=== PATIENT | male | born 1955 | race Caucasian/White ===

== ENCOUNTER 2017-10-01 09:49 | Inpatient (IN) | payer OTHER ==
[2017-10-01] MEDS ORDERED: Sodium Chloride 0.9% 10 ML Syringe FLUSH PRN ×3 (09:57→12:40)
[2017-10-01] MEDS ORDERED: Iopamidol 612 MG/ML 150 ML Bottle IVPUSH ONE (10:00)
[2017-10-01] MEDS ORDERED: Lactated Ringers 1,000 ML IV SCH (10:00)
--- NOTE | 2017-10-01 10:34 | CT ---
CT cervical spine Technique: Multiple axial sections were obtained from above C1 inferiorly to the mid T2 level. Reconstructed sagittal and coronal images were reviewed. Comparison: No prior cervical spine imaging. Findings: Small sclerotic areas are identified within C7 and T2 which are felt to represent incidental bone islands. Additional sclerotic area is noted within the right second rib also felt to represent bone island. Mild degenerative change is scattered within the apophyseal joints. Minimal disc space narrowing is noted at C7-T1. Other disc spaces are maintained. Minimal anterior osteophytes are noted within the lower cervical spine. Vertebral body heights are maintained. Vertebral bodies and posterior arches are intact with no fracture being seen. No bony central or bony neural foraminal stenosis is seen. No subluxation is seen on the reconstructed sagittal images. Impression: 1. Mild degenerative change. Other incidental findings as noted above. 2. No acute fracture or abnormal subluxation is seen on CT study of the cervical spine. Diagnostic code #2
--- NOTE | 2017-10-01 10:40 | CT ---
CT chest Technique: Multiple axial sections were obtained from above the dome of the diaphragm inferiorly through the lung bases. Intravenous contrast was utilized. Comparison: No previous chest imaging. Findings: Mediastinum and hilar regions show no adenopathy or mass. Pulsation artifacts are seen obscuring a portion of the ascending aorta. No pericardial thickening is seen. Lungs show no acute parenchymal densities. No pleural effusions are seen. No pneumothorax is seen. Bone window settings were reviewed which shows degenerative change within both shoulders. Degenerative spurring is noted within the spine. No acute rib fracture is appreciated. Thoracic spine shows nothing acute. Lateral view of the sternum shows no discrete fracture. Impression: 1. Ascending aorta not well seen due to pulsation artifact. 2. Other incidental findings. Nothing acute is otherwise seen on CT study of the chest. Diagnostic code #2 CT abdomen and pelvis Technique: Multiple axial sections were obtained from above the dome of the diaphragm inferiorly through the pubic symphysis. Intravenous contrast was utilized. No oral contrast has been given. Comparison: No previous abdominal imaging. Findings: Fatty infiltration is identified within the liver. Small hiatal hernia is seen. Spleen shows small calcifications compatible with incidental granulomas. Adrenal glands show no nodule. Kidneys show symmetric contrast enhancement with small scattered cortical cysts being seen within both kidneys. Gallbladder contains no calcified gallstones. Pancreas appears within normal limits. Aorta shows no aneurysmal. No retroperitoneal adenopathy or mesenteric abnormalities are seen. Appendix is seen which is normal. No pelvic mass or adenopathy is noted. Fat-containing left inguinal hernia is seen. Delayed images shows contrast within the distal ureters and within the bladder. Bone window settings were reviewed which shows scattered degenerative change within the spine. No acute osseous abnormality is identified. Impression: 1. Incidental findings. Nothing acute is seen on CT study of the abdomen and pelvis. Diagnostic code #2
--- NOTE | 2017-10-01 10:42 | CT ---
Head CT Technique: Multiple axial sections were obtained through the brain. Intravenous contrast was not utilized. Comparison: No previous intracranial imaging. Findings: Soft tissue swelling and small hematoma is seen within the left temporal scalp. Ventricles along with basal cisterns and sulci over convexities are mildly prominent. Minimal diminished density is noted within the periventricular white matter which is compatible with small vessel ischemic demyelination change. No other abnormal parenchymal densities are seen. No evidence of intracranial hemorrhage. No midline shift or mass effect is seen. Moderate mucosal thickening is seen within the ethmoid sinuses with mild mucosal thickening noted within the maxillary sinuses. No acute calvarial abnormality is seen. Impression: 1. Soft tissue swelling and small hematoma is seen within the left temporal scalp. 2. Sinus findings which are likely chronic. 3. Mild senescent change with no acute intracranial abnormality being seen. Diagnostic code #3
[2017-10-01] MEDS ORDERED: HYDROmorphone 0.5 MG/0.5 ML SYRINGE IVPUSH ONE (12:10)
[2017-10-01] MEDS ORDERED: Iopamidol 755 Mg/ML 100 ML Bottle IVPUSH ONE (12:40)
[2017-10-01] MEDS ORDERED: Sodium Chloride 0.9% 100 ML IV SCH (12:45)
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
[2017-10-01] MEDS ORDERED: Morphine 10 MG/ML Syringe IVPUSH PRN (18:29)
[2017-10-01] MEDS: HYDROmorphone 0.5 MG/0.5 ML SYRINGE IVPUSH PRN ×2 (20:34→22:52)
[2017-10-01] MEDS: Acetaminophen 325 MG Tab PO PRN (20:35)
[2017-10-01] MEDS ORDERED: Ondansetron 4 MG/2 ML SDV IVPUSH PRN (22:02)
[2017-10-02] MEDS: HYDROmorphone 0.5 MG/0.5 ML SYRINGE IVPUSH PRN ×6 (02:01→14:00)
[2017-10-02] MEDS: Acetaminophen 325 MG Tab PO PRN (07:06)
--- NOTE | 2017-10-02 07:48 | CT ---
CT neck angiogram Technique: Multiple axial sections were obtained through the neck. Intravenous contrast was utilized. Findings: Small portion of the visualized lung apices are clear. Common carotid arteries appear unremarkable. No occlusion or dissection is seen. Carotid bulb and internal carotid arteries appear within normal limits. Both vertebral arteries are opacified into the basilar artery with no evidence of occlusion or dissection. Both jugular veins are patent. Proximal external carotid arteries are unremarkable. Parotid salivary glands and submandibular salivary glands are within normal limits. Mild mucosal thickening is seen within the ethmoid sinuses with minimal mucosal thickening seen within the inferior left maxillary sinus. Soft tissue density is seen within the right nasal sinus most likely due to incidental nasal polyp. Minimal soft tissue density within the left nasal cavity is most likely due to nasal polyp. Scattered lymph nodes are seen within the neck which are felt to be within normal limits. Nothing is seen to indicate adenopathy. Bone window settings were reviewed which show nothing acute. Impression: 1. No vascular occlusion or dissection is seen within the neck. 2. Other findings as noted above believed to be incidental. Diagnostic code #1 Agree with preliminary report issued by [employer] ([facility] preliminary report dictated on 10/01/17, 3:29 PM Central Time)
--- NOTE | 2017-10-02 09:11 | MR ---
MRI cervical spine Technique: Multiple T2 gradient echo axial images were obtained from above the C2-C3 disc inferiorly through the C7-T1 disc. T1 and T2-weighted sagittal images were obtained. Comparison: Prior cervical spine CT exam of 10/01/17 is available. Findings: C2-C3: Posterior disc is preserved. No central canal stenosis or neural foraminal stenosis is seen. C3-C4: Minimal posterior disc bulge to the midline is seen. No central canal stenosis or neural foraminal stenosis is seen. C4-C5: Minimal posterior disc bulge is seen. No central canal stenosis is seen. Minimal bilateral neural foraminal stenosis is noted. C5-C6: Mild diffuse posterior disc bulge is seen which slightly effaces the anterior thecal sac. No central canal stenosis is noted. Mild to moderate bilateral neural foraminal stenosis is seen. C6-C7: Minimal posterior disc bulge is seen. No central canal stenosis or neural foraminal stenosis is seen. C7-T1: Posterior disc is maintained. No central canal stenosis or neural foraminal stenosis is seen. T1-T2 and T2-T3: Posterior discs are preserved. No central canal stenosis or neural foraminal stenosis is seen. Cervical cord shows no abnormal signal or mass. Impression: 1. Mild degenerative change as noted above. Diagnostic code #2
[2017-10-02] MEDS ORDERED: diphenhydrAMINE 25 MG Cap PO PRN ×2 (10:41→10:54)
[2017-10-02] MEDS ORDERED: Sodium Chloride 0.9% 10 ML Syringe FLUSH PRN (10:51)
[2017-10-02] MEDS ORDERED: Famotidine 20 MG Tab PO PRN (10:54)
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
[2017-10-02] MEDS: Cyclobenzaprine 10 MG Tab PO SCH ×2 (11:15→21:14)
[2017-10-02] MEDS ORDERED: Morphine Sulfate 10mg/ml SDV IVPUSH PRN (14:00)
[2017-10-02] MEDS: Acetaminophen/oxyCODONE 325-5 MG Tab PO PRN ×2 (16:22→21:14)
[2017-10-02] MEDS: Montelukast 10 MG Tab PO SCH (17:37)
[2017-10-02] MEDS: Loratadine 10 MG Tab PO SCH (21:14)
[2017-10-03] MEDS: Acetaminophen/oxyCODONE 325-5 MG Tab PO PRN ×3 (01:17→20:01)
[2017-10-03] MEDS: Cyclobenzaprine 10 MG Tab PO SCH ×2 (08:03→20:01)
[2017-10-03] MEDS: Loratadine 10 MG Tab PO SCH ×2 (08:04→20:01)
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
[2017-10-03] MEDS: Montelukast 10 MG Tab PO SCH (17:16)
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
[2017-10-04] MEDS: Loratadine 10 MG Tab PO SCH (08:07)
[2017-10-04] MEDS: Cyclobenzaprine 10 MG Tab PO SCH (08:07)
== END 2017-10-04 08:46 | disposition home or self-care (01) | DRG 89 ==
LOC: JD.ED 09:49 → JD.ICU 16:48
PROVIDERS: ADMIT Surgery; ATTEND Surgery
DX: S06.0X9A Concussion with loss of consciousness of unspecified duration, initial encounter (principal); S26.91XA Contusion of heart, unspecified with or without hemopericardium, initial encounter; S30.1XXA Contusion of abdominal wall, initial encounter; V49.49XA Driver injured in collision with other motor vehicles in traffic accident, initial encounter; Y92.413 State road as the place of occurrence of the external cause; S16.1XXA Strain of muscle, fascia and tendon at neck level, initial encounter; S20.219A Contusion of unspecified front wall of thorax, initial encounter; M19.90 Unspecified osteoarthritis, unspecified site; K59.00 Constipation, unspecified
CPT/HCPCS: 36415; 70450; 70450-26; 70498; 70498-26; 71260; 71260-26; 72125; 72125-26; 72141; 72141-26; 74177; 74177-26; 80053; 80076; 80306; 81001; 83690; 84484; 85025; 93005; 93010; 96361; 96374; 97116-GP; 97161-GP; 97165-GO; 97530-GO; 99285-25; A9270-GY; G0480; J1170; J7030; J7050; J7120; Q9967